=== PATIENT | female | born 1980 | race Caucasian/White ===

== ENCOUNTER → 2020-11-03 14:11 | Outpatient (CLI) | payer OTHER, SELFPAY ==
--- NOTE | 2020-11-03 | DI.US.S_ITS ---
PROCEDURE: US THYROID INDICATIONS: MALIGNANT NEOPLASM OF THE THYROID TECHNIQUE: Real-time scanning was performed of the thyroid gland, with image documentation. COMPARISON: [facility], [place], THYROID, 06/29/2014, 8:39. FINDINGS: Right: No visualized thyroid tissue. Left: There is an approximate 3 x 9 x 2 mm focus of decreased echogenicity within the thyroid bed. It is noted that there are several areas of calcification identified within the musculature anterior to the thyroid bed. In addition, there is a focus of decreased echogenicity appearing to be within the musculature on both the left and right side measuring 8 mm and 4 mm respectively. IMPRESSION: 1. No visualized thyroid tissue within the right thyroid bed. 2. 3 x 9 x 2 mm focus of decreased echogenicity within the left thyroid bed. This could represent a small lymph node. However, other etiologies cannot be excluded. Further evaluation with nuclear medicine or CT parathyroid exam is recommended as indicated. 3. Foci of decreased echogenicity within the neck musculature as above. These are overall nonspecific and not well characterized. While these could represent areas of hematoma. Other etiologies of mass lesion within the musculature cannot be excluded. Further evaluation with CT is recommended. Dictated by: Luna Mercedes M.D. on 11/03/2020 at 16:05 Approved by: Luna Mercedes M.D. on 11/03/2020 at 16:08
[2020-11-03 17:38] LABS: Free T4, Direct Thyroxine 1.56 ng/dL (0.78-2.19)
[2020-11-03 17:52] LABS: Thyroid Stimulating Hormone 0.135 uIU/mL (0.47-4.68)
[2020-11-04 20:59] LABS: Anti Thyroglobulin Antibody <1.0 IU/mL (0.0-0.9)
[2020-11-10 19:36] LABS: Thyroglobulin Level <2.0 ng/mL (.)
== END ==
PROVIDERS: Family Provider Physician Assistant Medical; PCP Physician Assistant Medical; Referring Provider Internal Medicine Endocrinology, Diabetes & Metabolism; Visit Provider Internal Medicine Endocrinology, Diabetes & Metabolism
DX: C73 Malignant neoplasm of thyroid gland (principal)
CPT/HCPCS: 36415; 76536; 84432; 84439; 84443; 86800

== ENCOUNTER → 2021-09-11 10:18 | Outpatient (CLI) | payer OTHER, SELFPAY ==
[2021-09-11 14:13] LABS: Free T4, Direct Thyroxine 1.13 ng/dL (0.78-2.19)
[2021-09-11 14:27] LABS: Thyroid Stimulating Hormone 2.97 uIU/mL (0.47-4.68)
[2021-09-11 16:15] LABS: HIV 1 & 2 Ab/Ag 4th Gen Combo NEGATIVE (NEGATIVE); Hep C Virus Ab w/Reflex Quant NEGATIVE s/c (NEGATIVE)
[2021-09-12 04:08] LABS: RPR Screen Non Reactive (Non Reactive)
[2021-09-21 10:38] LABS: Thyroglobulin Level <2.0 ng/mL (.)
== END ==
PROVIDERS: Family Provider Physician Assistant Medical; PCP Physician Assistant Medical; Referring Provider Internal Medicine Endocrinology, Diabetes & Metabolism; Visit Provider Internal Medicine Endocrinology, Diabetes & Metabolism
DX: Z11.59 Encounter for screening for other viral diseases (principal); Z11.4 Encounter for screening for human immunodeficiency virus [HIV]; Z11.3 Encounter for screening for infections with a predominantly sexual mode of transmission
CPT/HCPCS: 36415; 84432; 84439; 84443; 86592; 86706; 86803; 87389

== ENCOUNTER → 2021-10-05 14:21 | Outpatient (CLI) | payer OTHER, SELFPAY ==
--- NOTE | 2021-10-05 | DI.US.S_ITS ---
PROCEDURE: US THYROID INDICATIONS: HX THYROIDECTOMY TECHNIQUE: Real-time scanning was performed of the thyroid gland, with image documentation. COMPARISON: [facility], [place], US THYROID, 11/03/2020, 14:27. FINDINGS: The thyroid is surgically absent. As before, subcentimeter hypoechoic regions are visualized within the strap muscle superior to the thyroid bed which are unchanged from the prior study and measure 4 mm on the right and 4 mm on the left. Calcification is also redemonstrated in these muscles unchanged from the study dated November 03, 2020. IMPRESSION: Stable sonographic findings when compared with the study dated November 03, 2020. ACR TI-RADS definitions and recommendations: TI-RADS 1 (benign): 0 points. FNA not needed. TI-RADS 2 (not suspicious): 2 points. FNA not needed. TI-RADS 3 (mildly suspicious): 3 points. * FNA if 2.5 cm or larger, follow up if 1.5 cm or larger (at 1, 3, and 5 years). TI-RADS 4 (moderately suspicious): 4-6 points. * FNA if 1.5 cm or larger, follow up if 1 cm or larger (at 1, 2, 3, and 5 years). TI-RADS 5 (highly suspicious): 7 points or more. * FNA if 1 cm or larger, follow up if 0.5 cm or larger (every year for 5 years). Dictated by: Brianda Claudio M.D. on 10/06/2021 at 12:31 Approved by: Brianda Claudio M.D. on 10/06/2021 at 12:33
[2021-10-05 17:18] LABS: HIV 1 & 2 Ab/Ag 4th Gen Combo NEGATIVE (NEGATIVE); Hep C Virus Ab w/Reflex Quant NEGATIVE s/c (NEGATIVE)
[2021-10-06 13:55] LABS: Hepatitis B Surface Antigen NEGATIVE s/c (NEGATIVE)
[2021-10-06 20:16] LABS: Anti Thyroglobulin Antibody <1.0 IU/mL (0.0-0.9)
--- NOTE | 2022-12-14 11:10 | DI.US.S_ITS ---
PROCEDURE: US THYROID INDICATIONS: malignant neoplasm of the thyroid gland TECHNIQUE: Real-time scanning was performed of the thyroid gland, with image documentation. COMPARISON: [facility], [place], US THYROID, 10/05/2021, 14:30. FINDINGS: The thyroid is surgically absent. Subcentimeter hypoechoic foci in the thyroid bed are unchanged compared to the prior ultrasound. These measure 5 x 5 x 7 mm on the right and 3 by 1 x 2 mm on the left. Punctate calcifications are also unchanged. IMPRESSION: Stable sonographic findings compared to 10/05/2021. Dictated by: Ralf Novoa M.D. on 11/22/2022 at 12:16 Approved by: Ralf Novoa M.D. on 11/22/2022 at 12:19
== END ==
PROVIDERS: Family Provider Physician Assistant Medical; PCP Physician Assistant Medical; Referring Provider Obstetrics & Gynecology; Visit Provider Internal Medicine Endocrinology, Diabetes & Metabolism
DX: C73 Malignant neoplasm of thyroid gland (principal); Z11.59 Encounter for screening for other viral diseases; Z11.4 Encounter for screening for human immunodeficiency virus [HIV]; E89.0 Postprocedural hypothyroidism
CPT/HCPCS: 36415; 76536; 86706; 86800; 86803; 87340; 87389

== ENCOUNTER → 2022-11-21 16:55 | Outpatient (CLI) | payer OTHER, SELFPAY ==
--- NOTE | 2022-11-21 17:02 | DI.US.S_ITS ---
PATIENT NAME: JESSICA GODOY : 1980 EXAM DATE: 11/21/2022 17:[address] SLIM ELIZONDO M.D. CC: MODALITY: US PATIENT TYPE: Out CONTRAST MEDIA: STATION ID: [id number] FLUORO TIME: PROCEDURE: US THYROID INDICATIONS: malignant neoplasm of the thyroid gland TECHNIQUE: Real-time scanning was performed of the thyroid gland, with image documentation. COMPARISON: [facility], [place], US THYROID, 10/05/2021, 14:30. FINDINGS: The thyroid is surgically absent. Subcentimeter hypoechoic foci in the thyroid bed are unchanged compared to the prior ultrasound. These measure 5 x 5 x 7 mm on the right and 3 by 1 x 2 mm on the left. Punctate calcifications are also unchanged. IMPRESSION: Stable sonographic findings compared to 10/05/2021. Dictated by: Ralf Novoa M.D. on 11/22/2022 at 12:16 Approved by: Ralf Novoa M.D. on 11/22/2022 at 12:19
== END ==
PROVIDERS: Family Provider Physician Assistant Medical; PCP Physician Assistant Medical; Referring Provider Internal Medicine Endocrinology, Diabetes & Metabolism; Visit Provider Internal Medicine Endocrinology, Diabetes & Metabolism
DX: C73 Malignant neoplasm of thyroid gland (principal)
CPT/HCPCS: 76536